=== PATIENT | male | born 1945 | race Caucasian/White ===

== ENCOUNTER 2023-06-15 22:47 | Emergency (ER) | payer OTHER ==
[~2023-06-15] VITALS: Ht 172.7 cm; Wt 78.0 kg
[2023-06-15 23:17] VITALS: BP 131/74; PULSE 50; RESP 18; O2SAT 97
== END 2023-06-16 00:23 | disposition left against medical advice (07) ==
LOC: ER 22:47
DX: M54.50 Low back pain, unspecified (principal); Z53.21 Procedure and treatment not carried out due to patient leaving prior to being seen by health care provider
CPT/HCPCS: 99281